=== PATIENT | female | born 1960 | race Caucasian/White ===

== ENCOUNTER → 2021-05-27 09:21 | Outpatient (BNVA) | payer OTHER, SELFPAY | PROVIDERS: PCP Pediatrics; Visit Provider Nurse Practitioner Family ==

== ENCOUNTER → 2021-08-23 08:20 | Outpatient (BNVA) | payer OTHER, SELFPAY | PROVIDERS: PCP Pediatrics; Visit Provider Nurse Practitioner Family | DX: Z13.89 Encounter for screening for other disorder (principal) ==

== ENCOUNTER → 2022-07-07 09:22 | Outpatient (BNVA) | payer OTHER, SELFPAY | PROVIDERS: PCP Pediatrics; Visit Provider Nurse Practitioner Family | DX: G43.009 Migraine without aura, not intractable, without status migrainosus (principal) ==

== ENCOUNTER → 2022-11-07 07:44 | Outpatient (BNVA) | payer OTHER, SELFPAY | PROVIDERS: PCP Pediatrics; Visit Provider Nurse Practitioner Family | DX: G43.009 Migraine without aura, not intractable, without status migrainosus (principal) ==

== ENCOUNTER 2023-03-10 10:21 | Outpatient (AMB) | payer OTHER, SELFPAY ==
--- NOTE | 2023-03-10 10:32 | A.OFFVIS_ITS ---
Intake Vital Signs 03/10/23 10:41 Height 5 ft 6 in Weight 170 lb BMI 27.4 BP 118/72 Blood Pressure Location Rt brachial Position Sitting Intake Visit Reasons: 4m follow up migraine-Confirmed Intake Note: Patient presents for 4 month follow up. Patient states Actually my migraines are much better since i saw her last. Allergies avocado Allergy (Intermediate, Verified 03/10/23 10:43) unknown doxycycline Allergy (Intermediate, Verified 03/10/23 10:43) Unknown Penicillins Allergy (Intermediate, Verified 03/10/23 10:43) Unknown pregabalin [From Lyrica] Allergy (Intermediate, Verified 03/10/23 10:43) Unknown omeprazole Allergy (Mild, Verified 03/10/23 10:43) Unknown HPI HPI Comments History of Present Illness Details 62-yr-old female presents for f/u visit. 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 She has not had a headache since she had the surgery. Overall, the migraines are less often since she stopped the Qulipta. She is still using the Ubrelvy as needed. Denies any vision changes. Had to reschedule her Oct eye exam d/t the surgery. She also notes that she did not have any BUE tingling x's 2 weeks post-op, however yesterday she did wake up with some transient LUE tingling. Has noted some increased trapezius and paracervical muscle tightness. [facility] Surgical History (Updated 03/10/23 @ 10:44 by JARRET Humphries) H/O discectomy No pertinent past surgical history Family History Father Heart disease Mother Stroke Social History Alcohol intake: current Alcohol intake frequency: a few times a month Alcohol type: wine Patient Tobacco Use Status: Former Tobacco user Review of Systems Const All systems reviewed & are unremarkable except as noted in HPI and below Physical Exam Vital Signs: Last Vital Signs BP 118/72 03/10/23 10:41 BMI result Body Mass Index 27.4 Const General: cooperative and no acute distress Orientation/consciousness: patient oriented x3 HEENT Head: Yes normocephalic Resp Effort & Inspection: normal respiratory effort and able to speak in complete se ntences Neuro General: patient oriented x3, gait normal and CN's II-XI intact bilaterally Cognition (Neuro): normal cognition Motor exam (neuro): 5/5 motor strength present throughout Psych Appearance: grossly normal Mental Status: mental status grossly normal Speech and movement: Normal speech and movement present Affect: normal affect Attitude: cooperative Thought process: Normal thought process present Thought content: Normal thought content present Insight: Good insight present (Psych) Judgement: Good judgement present (Psych) Assessment & Plan Assessment & Plan (1) Migraine without aura: Code(s): G43.009 - Migraine without aura, not intractable, without status migrainosus (2) IIH (idiopathic intracranial hypertension): Comment: LP OP 23 cmH2O, however w/o positional headache or papilledema. Code(s): G93.2 - Benign intracranial hypertension Plan For ? IIH. Previous LP results- OP 23 cmH2O, slightly elevated. Eye exam when able. Pt previously did not tolerate topiramate for migraine prevention. Will monitor clinically. ? For migraine prevention: Continue Magnesium and Riboflavin. Continue Metoprolol (for HTN). Previous migraine prevention trials: Topiramate- not tolerated, Amitriptyline- caused constipation and not very effective. Atogepant effective- denied by insurance. Migraine contraindicated tx's: Aimovig d/t long-half life w/ risk for worsening constipation. ? For acute migraine tx: Continue Ubrogepant 100mg prn, as this is effective. Zolmitriptan 5mg prn Previous acute migraine tx trials: Sumatriptan and Rizatriptan- ineffective ? f/u in 4 months or sooner prn. Coding Level of Care Code Est Pt Level 4 (48668) Diagnoses Migraine without aura G43.009 IIH (idiopathic intracranial hypertension) G93.2
[2023-03-10 10:41] VITALS: BP 118/72; BMI 27.4
== END 2023-03-10 11:13 | disposition home or self-care (01) ==
PROVIDERS: PCP Pediatrics; Visit Provider Nurse Practitioner Family
DX: G43.009 Migraine without aura, not intractable, without status migrainosus (principal); G93.2 Benign intracranial hypertension
CPT/HCPCS: 99214

== ENCOUNTER → 2023-03-10 10:21 | Outpatient (BNVA) | payer OTHER, SELFPAY | PROVIDERS: PCP Pediatrics; Visit Provider Nurse Practitioner Family | DX: G43.009 Migraine without aura, not intractable, without status migrainosus (principal) ==

== ENCOUNTER 2023-07-14 10:12 | Outpatient (AMB) | payer OTHER, SELFPAY ==
--- NOTE | 2023-07-14 10:30 | A.OFFVIS_ITS ---
Intake Vital Signs 07/14/23 10:35 Height 5 ft 6 in Weight 174 lb BMI 28.1 BP 118/72 Blood Pressure Location Rt brachial Position Sitting Pulse 44 L Pulse Source Pulse Oximeter Pulse Oximetry (%) 98 Oxygen Delivery Method Room Air Intake Visit Reasons: 4 mnts f/u for Migraines-Conf Intake Note: Patient presents for 4 month follow up migraines. I've been having more headaches Allergies avocado Allergy (Intermediate, Verified 07/14/23 10:36) unknown doxycycline Allergy (Intermediate, Verified 07/14/23 10:36) Unknown Penicillins Allergy (Intermediate, Verified 07/14/23 10:36) Unknown pregabalin [From Lyrica] Allergy (Intermediate, Verified 07/14/23 10:36) Unknown omeprazole Allergy (Mild, Verified 07/14/23 10:36) Unknown Medication List - Last Reconciled 07/14/23 by KIERAN Perales atorvastatin 40 mg PO DAILY baclofen 10 mg PO TID PRN cetirizine 10 mg PO DAILY cholecalciferol (vitamin D3) 25 mcg PO DAILY docusate sodium (Colace Clear) 50 mg PO BID 30 days famotidine 40 mg PO BID hydrochlorothiazide 25 mg PO DAILY levothyroxine 25 mcg PO DAILY losartan 25 mg PO DAILY magnesium oxide 400 mg PO DAILY 30 days metoprolol succinate ER 25 mg PO DAILY paroxetine HCl 30 mg PO DAILY riboflavin (vitamin B2) (Vitamin B-2) 200 mg (2 x 100 mg) PO BID 30 days ubrogepant (Ubrelvy) 100 mg PO ONCE PRN 30 days vibegron (Gemtesa) 75 mg PO DAILY HPI HPI Comments History of Present Illness Details 62-yr-old female presents for f/u visit. Pt denies any significant interval medical changes. Pt's heart rate today is 44-48 bpm. Pt denies SOB, chest pain, lightheadedness. She has had recent BP med changes by PCP. Her HR often runs in the 50s. She has been having more migraine headaches. She thinks this is r/t having had to stop Qulipta- which was helpful but did cause constipation. She also notes some increased life stress- her [id number] has had some health issues and her dog has passed. In the last month, she is having 4-5 migraine days per week. No vision changes- had recent eye exam which did not show any papilledema/optic neuritis. She had her annual brain MRI f/u at the [facility]- stable white matter changes. PFSH Surgical History H/O discectomy No pertinent past surgical history Family History Father Heart disease Mother Stroke Social History Alcohol intake: current Alcohol intake frequency: a few times a month Alcohol type: wine Patient Tobacco Use Status: Former Tobacco user Physical Exam Vital Signs: Last Vital Signs Pulse 44 L 07/14/23 10:35 BP 118/72 07/14/23 10:35 Pulse Ox 98 07/14/23 10:35 Oxygen Delivery Method Room Air 07/14/23 10:35 BMI result Body Mass Index 28.1 Const General: cooperative and no acute distress Orientation/consciousness: patient oriented x3 Resp Effort & Inspection: normal respiratory effort and able to speak in complete sentences Cardio Rate: bradycardic Rhythm: regular rhythm Heart sounds: S1 normal heart sound present and S2 normal heart sound present Neuro General: patient oriented x3 Cranial nerves: Yes CN's II-XII intact bilaterally Cognition (Neuro): normal cognition Psych Appearance: grossly normal Mental Status: mental status grossly normal Speech and movement: Normal speech and movement present Affect: normal affect Attitude: cooperative Assessment & Plan Assessment & Plan (1) Migraine without aura: Code(s): G43.009 - Migraine without aura, not intractable, without status migrainosus (2) IIH (idiopathic intracranial hypertension): Comment: LP OP 23 cmH2O, however w/o positional headache or papilledema. Code(s): G93.2 - Benign intracranial hypertension (3) Bradycardia: Code(s): R00.1 - Bradycardia, unspecified Plan Pt advsied to f/u w/ PCP regarding bradycardia- ? effect of Metoprolol. For ? IIH. Previous LP results- OP 23 cmH2O, slightly elevated. Eye exam- no evidence for papilledema. Pt previously did not tolerate topiramate for migraine prevention. Will monitor clinically. ? For migraine prevention: Start Emgality 240mg sc x's 1 then 120mg sc q month. Continue Magnesium and Riboflavin. Continue Metoprolol (for HTN). Previous migraine prevention trials: Topiramate- not tolerated, Amitriptyline- caused constipation and not very effective. Atogepant effective but did cause constipation- previously denied by insurance. Migraine contraindicated tx's: Aimovig d/t long-half life w/ risk for worsening constipation. ? For acute migraine tx: Continue Ubrogepant 100mg prn, as this is effective. Zolmitriptan 5mg prn Previous acute migraine tx trials: Sumatriptan and Rizatriptan- ineffective ? f/u in 4 months or sooner prn. Medications: New galcanezumab-gnlm (Emgality Pen) Loading dose 240 mg (2 mL) subcut ONCE 30 days 2 mL 0RF Coding Level of Care Code Est Pt Level 4 (21071) Diagnoses Migraine without aura G43.009 IIH (idiopathic intracranial hypertension) G93.2 Bradycardia R00.1
[2023-07-14 10:35] VITALS: BP 118/72; PULSE 44; O2SAT 98; BMI 28.1
== END 2023-07-14 11:24 | disposition home or self-care (01) ==
LOC: HO.HSMS 10:12
PROVIDERS: PCP Pediatrics; Visit Provider Nurse Practitioner Family
DX: G43.009 Migraine without aura, not intractable, without status migrainosus (principal); G93.2 Benign intracranial hypertension; R00.1 Bradycardia, unspecified
CPT/HCPCS: 99214

== ENCOUNTER → 2023-07-14 10:12 | Outpatient (BNVA) | payer OTHER, SELFPAY | PROVIDERS: PCP Pediatrics; Visit Provider Nurse Practitioner Family ==

== ENCOUNTER 2023-10-26 08:16 | Outpatient (AMB) | payer OTHER, SELFPAY ==
--- NOTE | 2023-10-26 08:25 | A.OFFVIS_ITS ---
Vital Signs 10/26/23 08:26 Height 5 ft 6 in Weight 170 lb BMI 27.4 BP 116/76 Blood Pressure Location Rt brachial Position Sitting Intake Visit Reasons: 4 mo f/u-LVM Intake Note: Patient following up on migraines. patient on ubrelvy states it'[s working Allergies avocado Allergy (Intermediate, Verified 10/26/23 08:30) unknown doxycycline Allergy (Intermediate, Verified 10/26/23 08:30) Unknown Penicillins Allergy (Intermediate, Verified 10/26/23 08:30) Unknown pregabalin [From Lyrica] Allergy (Intermediate, Verified 10/26/23 08:30) Unknown omeprazole Allergy (Mild, Verified 10/26/23 08:30) Unknown Medication List - Last Reconciled 10/26/23 by KIERAN Perales apixaban (Eliquis) 5 mg PO BID atorvastatin 40 mg PO DAILY baclofen 10 mg PO TID PRN carisoprodol mg PO cetirizine 10 mg PO DAILY cholecalciferol (vitamin D3) 25 mcg PO DAILY docusate sodium (Colace Clear) 50 mg PO BID 30 days dronedarone (Multaq) 400 mg PO BID famotidine 40 mg PO BID galcanezumab-gnlm (Emgality Pen) 240 mg (2 mL) subcut ONCE 30 days hydrochlorothiazide 25 mg PO DAILY levothyroxine 25 mcg PO DAILY losartan 25 mg PO DAILY magnesium oxide 400 mg PO DAILY 30 days metoprolol succinate ER 25 mg PO DAILY paroxetine HCl 30 mg PO DAILY riboflavin (vitamin B2) (Vitamin B-2) 200 mg (2 x 100 mg) PO BID 30 days ubrogepant (Ubrelvy) 100 mg PO ONCE PRN 30 days vibegron (Gemtesa) 75 mg PO DAILY HPI Comments Details: 63-yr-old female presents for f/u visit. Pt reports in July, she was dx'd w/ symptomatic a-fib- fluttering, SOB, and if prolonged for 2-3 hrs has a terrible headache afterwards. She has been managed medically- increased metoprolol and started on Multaq and Eliquis, and has been referred to [facility] cardiology. She is scheduled for holter monitor. Pt reports the Ubrelvy is effective. However, she has periods where the migraines are more frequent or less frequent. Lately, she is having 1-2 migraine days per week, where as other times it can be 3-4 migraine days per week. Her insurance will not cover both preventive and acute CGRP antagonsist at the same time, so pt has not started Emgality. PFSH Surgical History H/O discectomy No pertinent past surgical history Family History Father Heart disease Mother Stroke Social History Alcohol intake: current Alcohol intake frequency: a few times a month Alcohol type: wine Patient Tobacco Use Status: Former Tobacco user Physical Exam Vital Signs: Last Vital Signs BP 116/76 10/26/23 08:26 BMI result Body Mass Index 27.4 Const General: cooperative and no acute distress Orientation/consciousness: patient oriented x3 Resp Effort & Inspection: normal respiratory effort and able to speak in complete sentences Neuro General: patient oriented x3 Cranial nerves: Yes CN's II-XII intact bilaterally Cognition (Neuro): normal cognition Psych Appearance: grossly normal Mental Status: mental status grossly normal Speech and movement: Normal speech and movement present Affect: normal affect Attitude: cooperative Assessment & Plan Assessment & Plan (1) Migraine without aura: Code(s): G43.009 - Migraine without aura, not intractable, without status migrainosus Category: Medical (2) IIH (idiopathic intracranial hypertension): Comment: LP OP 23 cmH2O, however w/o positional headache or papilledema. Code(s): G93.2 - Benign intracranial hypertension Category: Medical (3) Atrial fibrillation: Code(s): I48.91 - Unspecified atrial fibrillation Category: Medical Plan For ? IIH. Previous LP results- OP 23 cmH2O, slightly elevated. Eye exam- no evidence for papilledema. Pt previously did not tolerate topiramate for migraine prevention. Will monitor clinically. ? For migraine prevention: Hold Emgality 240mg- her insurance has not approved. Continue Magnesium and Riboflavin. Continue Metoprolol (for HTN and A-fib). Will consider adjuncting further after pt has completed a-fib work-up and tx plan has been established. In the meantime, could consider trying neuromodulation device, such as Cefaly. Information shared w/ pt. Previous migraine prevention trials: Topiramate- not tolerated, Amitriptyline- caused constipation and not very effective. Atogepant effective but did cause constipation- previously denied by insurance. Migraine contraindicated tx's: Aimovig d/t long-half life w/ risk for worsening constipation. ? For acute migraine tx: Continue Ubrogepant 100mg prn, as this is effective. Previous acute migraine tx trials: Sumatriptan and Rizatriptan- ineffective. Zolmitriptan 5mg prn- some effect. Tx contraindications: all triptans d/t new a-fib dx. NSAIDs d/t eleuis use. ? f/u in 6 months or sooner prn. Medications: Discontinued galcanezumab-gnlm (Emgality Pen) Loading dose Discontinued Reason: Doctor's Order 240 mg (2 mL) subcut ONCE 30 days 2 mL 0RF Coding Level of Care Code Est Pt Level 4 (39448) Diagnoses Migraine without aura G43.009 IIH (idiopathic intracranial hypertension) G93.2 Atrial fibrillation I48.91
[2023-10-26 08:26] VITALS: BP 116/76; BMI 27.4
== END 2023-10-26 09:28 | disposition home or self-care (01) ==
PROVIDERS: PCP Pediatrics; Visit Provider Nurse Practitioner Family
DX: G43.009 Migraine without aura, not intractable, without status migrainosus (principal); G93.2 Benign intracranial hypertension; I48.91 Unspecified atrial fibrillation
CPT/HCPCS: 99214

== ENCOUNTER → 2023-10-26 08:16 | Outpatient (BNVA) | payer OTHER, SELFPAY | PROVIDERS: PCP Pediatrics; Visit Provider Nurse Practitioner Family ==

== ENCOUNTER 2024-05-23 11:16 | Outpatient (AMB) | payer OTHER, SELFPAY ==
[2024-05-23 11:46] VITALS: BP 120/72; PULSE 62; O2SAT 96; BMI 27.4
--- NOTE | 2024-05-23 11:46 | MHC.OFFVIS ---
Vital Signs 05/23/24 11:46 Height 5 ft 6 in Weight 169 lb 8 oz BMI 27.4 BP 120/72 Blood Pressure Location Rt brachial Position Sitting Pulse 62 Pulse Source Pulse Oximeter Pulse Oximetry (%) 96 Oxygen Delivery Method Room Air Intake Visit Reasons: Follow up Intake Note: Follow up Allergies avocado Allergy (Intermediate, Verified 05/23/24 11:51) unknown doxycycline Allergy (Intermediate, Verified 05/23/24 11:51) Unknown Penicillins Allergy (Intermediate, Verified 05/23/24 11:51) Unknown pregabalin [From Lyrica] Allergy (Intermediate, Verified 05/23/24 11:51) Unknown amlodipine Allergy (Mild, Verified 05/23/24 11:51) Swelling omeprazole Allergy (Mild, Verified 05/23/24 11:51) Unknown tizanidine Allergy (Mild, Verified 05/23/24 11:51) Unknown dronedarone Allergy (Unknown, Verified 05/23/24 11:51) Unknown NSAIDS (Non-Steroidal Anti-Inflamma Allergy (Unknown, Verified 05/23/24 11:51) Unknown Medication List - Last Reconciled 05/23/24 by KIERAN Perales apixaban (Eliquis) 5 mg PO BID atorvastatin 40 mg PO DAILY baclofen 10 mg PO TID PRN carisoprodol mg PO cetirizine 10 mg PO DAILY cholecalciferol (vitamin D3) 25 mcg PO DAILY docusate sodium (Colace Clear) 50 mg PO BID 30 days dronedarone (Multaq) 400 mg PO BID famotidine 40 mg PO BID hydrochlorothiazide 25 mg PO DAILY levothyroxine 25 mcg PO DAILY losartan 25 mg PO DAILY magnesium oxide 400 mg PO DAILY 30 days metoprolol succinate ER 25 mg PO DAILY paroxetine HCl 30 mg PO DAILY riboflavin (vitamin B2) (Vitamin B-2) 200 mg (2 x 100 mg) PO BID 30 days ubrogepant (Ubrelvy) 100 mg PO ONCE PRN 30 days vibegron (Gemtesa) 75 mg PO DAILY HPI Comments Details: 63-yr-old female presents for f/u visit of Pt currently has cold/URI s/s.- cough, hoarseness . She has had cardiology f/u- states work-up does not show evidence of a-fib and has been weaned off the Eliquis. The Multaq was stopped d/t elevated LFTs, which have normalized. She continues on her anti-HTN Tx for BP management. Today, she is normotensive. She just had f/u brain MRI- ordered through the [facility]- she reviewed the report herself, and results were stable. She had a recent fall, and has been having ongoing L> R knee pain despite trying PT. So, she is using a cane for now. She had MRI left knee- states has f/u w/ [facility] physiatry to review. Pt reports the Ubrelvy is effective. However, she has periods where the migraines are more frequent or less frequent. Recently she is having less migraines, about 3-4 migraine days per week. [facility] Surgical History (Updated 05/23/24 @ 11:53 by JARRET Hu) H/O cardiac radiofrequency ablation H/O discectomy No pertinent past surgical history Family History Father Heart disease Mother Stroke Social History Alcohol intake: current Alcohol intake frequency: a few times a month Alcohol type: wine Patient Tobacco Use Status: Former Tobacco user Physical Exam Vital Signs: Last Vital Signs Pulse 62 05/23/24 11:46 BP 120/72 05/23/24 11:46 Pulse Ox 96 05/23/24 11:46 Oxygen Delivery Method Room Air 05/23/24 11:46 BMI result Body Mass Index 27.4 Const General: cooperative and no acute distress Orientation/consciousness: patient oriented x3 Resp Effort & Inspection: normal respiratory effort and able to speak in complete sentences Neuro Other: Steady gait with cane. General: patient oriented x3 Cranial nerves: Yes CN's II-XII intact bilaterally Cognition (Neuro): normal cognition Psych Appearance: grossly normal Mental Status: mental status grossly normal Speech and movement: Normal speech and movement present Affect: normal affect Attitude: cooperative Assessment & Plan Assessment & Plan (1) Migraine without aura: Code(s): G43.009 - Migraine without aura, not intractable, without status migrainosus Category: Medical (2) IIH (idiopathic intracranial hypertension): Comment: LP OP 23 cmH2O, however w/o positional headache or papilledema. Code(s): G93.2 - Benign intracranial hypertension Category: Medical (3) White matter disease, unspecified: Comment: Brain MRI ([facility])- mild cerebral volume loss and WM changes. Code(s): R90.82 - White matter disease, unspecified Category: Medical Plan For ? IIH: Will request recent brain MRI results from the [facility]. Previous LP results- OP 23 cmH2O, slightly elevated. Eye exam- no evidence for papilledema. Pt previously did not tolerate topiramate for migraine prevention. Will monitor clinically. ? For migraine prevention: Continue Magnesium and Riboflavin. Continue Metoprolol (for HTN). Will consider adjuncting further after pt has completed a-fib work-up and tx plan has been established. In the meantime, could consider trying neuromodulation device, such as Cefaly. Information shared w/ pt. Previous migraine prevention trials: Topiramate- not tolerated, Amitriptyline- caused constipation and not very effective. Atogepant effective but did cause constipation- previously denied by insurance. Migraine contraindicated tx's: Aimovig d/t long-half life w/ risk for worsening constipation. ? For acute migraine tx: Continue Ubrogepant 100mg prn, as this is effective. Previous acute migraine tx trials: Sumatriptan and Rizatriptan- ineffective. Zolmitriptan 5mg prn- some effect. Tx contraindications: all triptans d/t h/o a-fib dx. ? f/u in 6 months or sooner prn. Medications: Refilled ubrogepant (Ubrelvy) 1/2 - 1 tab at onset of migraine, may repeat in 2 hrs (max 200mg/day) 100 mg PO ONCE 30 days PRN 16 tabs 6RF migraine headache G43.009 - Migraine without aura, not intractable, without status migrainosus Coding Level of Care Code Est Pt Level 4 (15005) Diagnoses Migraine without aura G43.009 IIH (idiopathic intracranial hypertension) G93.2 White matter disease, unspecified R90.82
== END 2024-05-23 12:22 | disposition home or self-care (01) ==
PROVIDERS: PCP Pediatrics; Visit Provider Nurse Practitioner Family
DX: G43.009 Migraine without aura, not intractable, without status migrainosus (principal); G93.2 Benign intracranial hypertension; R90.82 White matter disease, unspecified
CPT/HCPCS: 99214

== ENCOUNTER → 2024-05-23 11:16 | Outpatient (BNVA) | payer OTHER, SELFPAY | PROVIDERS: PCP Pediatrics; Visit Provider Nurse Practitioner Family ==

== ENCOUNTER 2024-12-06 09:06 | Outpatient (AMB) | payer OTHER, SELFPAY ==
[2024-12-06 09:19] VITALS: BP 112/62; PULSE 59; O2SAT 98; BMI 26.2
--- NOTE | 2024-12-06 09:19 | MHC.OFFVIS ---
Vital Signs 12/06/24 09:19 Height 5 ft 6 in Weight 162 lb 8 oz BMI 26.2 BP 112/62 Blood Pressure Location Lt brachial Position Sitting Pulse 59 Pulse Source Pulse Oximeter Pulse Oximetry (%) 98 Oxygen Delivery Method Room Air Intake Visit Reasons: Follow Up 6mo Intake Note: Patient presents follow up Migraine. Allergies avocado Allergy (Intermediate, Verified 12/06/24 09:21) unknown doxycycline Allergy (Intermediate, Verified 12/06/24 09:21) Unknown Penicillins Allergy (Intermediate, Verified 12/06/24 09:21) Unknown pregabalin (From Lyrica) Allergy (Intermediate, Verified 12/06/24 09:21) Unknown amlodipine Allergy (Mild, Verified 12/06/24 09:21) Swelling omeprazole Allergy (Mild, Verified 12/06/24 09:21) Unknown tizanidine Allergy (Mild, Verified 12/06/24 09:21) Unknown dronedarone Allergy (Unknown, Verified 12/06/24 09:21) Unknown NSAIDS (Non-Steroidal Anti-Inflamma Allergy (Unknown, Verified 12/06/24 09:21) Unknown Medication List - Last Reconciled 12/06/24 by KIERAN Perales atorvastatin 40 mg PO DAILY baclofen 10 mg PO TID PRN carisoprodol mg PO cetirizine 10 mg PO DAILY cholecalciferol (vitamin D3) 25 mcg PO DAILY famotidine 40 mg PO BID hydrochlorothiazide 25 mg PO DAILY levothyroxine 25 mcg PO DAILY linaclotide (Linzess) 75 mcg PO Q OTHER DAY losartan 25 mg PO DAILY magnesium oxide 400 mg PO DAILY 30 days paroxetine HCl 30 mg PO DAILY riboflavin (vitamin B2) (Vitamin B-2) 200 mg (2 x 100 mg) PO BID 30 days ubrogepant (Ubrelvy) 100 mg PO ONCE PRN 30 days vibegron (Gemtesa) 75 mg PO DAILY HPI Comments Details: 63-yr-old female presents for f/u visit of Pt denies any significant interval changes. Denies nay interval s/s of a-fib s/p the cardiac ablation. She is compliant w/ Losartan for BP management. Today, she is normotensive w/ low norm HR, today HR is 59. She has f/u w/ the [facility] in [place]. Brain MRI showed stable white matter changes, non-specific. She states that she is due to have EMG/NCS d/t increased hand/feet tingling. She also notes 5 recent falls and some near falls where she catches herself. The falls have been a mix of tripping over a basket, stepping on some acorns, but other times tripping or just turning and losing her balance. She feels off-balance, more so when her eyes are closed. She can feel the ground when she is walking. She was having less headcahes, but in the last few months is again having 2-3 migraine attacks per week. Pt reports the Ubrelvy is effective, but has not been able to refill this since the last visit. PFSH Surgical History H/O cardiac radiofrequency ablation H/O discectomy No pertinent past surgical history Family History Father Heart disease Mother Stroke Social History Alcohol intake: current Alcohol intake frequency: a few times a month Alcohol type: wine Patient Tobacco Use Status: Former Tobacco user Physical Exam Vital Signs: Last Vital Signs Pulse 59 12/06/24 09:19 BP 112/62 12/06/24 09:19 Pulse Ox 98 12/06/24 09:19 Oxygen Delivery Method Room Air 12/06/24 09:19 BMI result Body Mass Index 26.2 Const General: cooperative and no acute distress Orientation/consciousness: patient oriented x3 Resp Effort & Inspection: normal respiratory effort and able to speak in complete sentences Neuro Other: Steady gait with cane. General: patient oriented x3 Cranial nerves: Yes CN's II-XII intact bilaterally Cognition (Neuro): normal cognition Psych Appearance: grossly normal Mental Status: mental status grossly normal Speech and movement: Normal speech and movement present Affect: normal affect Attitude: cooperative Assessment & Plan Assessment & Plan (1) Migraine without aura: Code(s): G43.009 - Migraine without aura, not intractable, without status migrainosus Category: Medical Qualifiers: Intractability: not intractable Status migrainosus presence: without status migrainosus Qualified Code(s): G43.009 - Migraine without aura, not intractable, without status migrainosus (2) IIH (idiopathic intracranial hypertension): Comment: LP OP 23 cmH2O, however w/o positional headache or papilledema. Code(s): G93.2 - Benign intracranial hypertension Category: Medical (3) White matter disease, unspecified: Comment: Brain MRI ([facility])- mild cerebral volume loss and WM changes. Code(s): R90.82 - White matter disease, unspecified Category: Medical Plan For ? IIH: Reviewed brain MRI results from the [facility]. Previous LP results- OP 23 cmH2O, slightly elevated. Eye exam- no evidence for papilledema. Pt previously did not tolerate topiramate for migraine prevention. Will monitor clinically. For balance issues: Try adding foot/ankle exercises- handout given to pt. Consider Adalid-Chi For white matter cahnges and paresthesias: F/u w/ [facility] as scheduled. EMG/NCS as planeed. ? For migraine prevention: Continue Magnesium and Riboflavin. Pt has stopped metoprolol per cardiology- d/t bradycardia. Start Memantine ER 7mg daily x's 30 days, if well tolertaed will increase daily dose every 30 days to 14mg, then 21mg, and finally 28mg. Previous migraine prevention trials: Topiramate- not tolerated, Amitriptyline- caused constipation and not very effective. Atogepant effective but did cause constipation- previously denied by insurance. Metoprolol- bradycardia. Migraine contraindicated tx's: Aimovig d/t long-half life w/ risk for worsening constipation. ? For acute migraine tx: Continue Ubrogepant 100mg prn, as this is effective. Previous acute migraine tx trials: Sumatriptan and Rizatriptan- ineffective. Zolmitriptan 5mg prn- some effect. Tx contraindications: all triptans d/t a-fib dx. ? f/u in 6 months or sooner prn. Medications: New memantine then stop and increase to 14mg qd 7 mg PO DAILY 30 ea 0RF 30 days Refilled ubrogepant (Ubrelvy) 1/2 - 1 tab at onset of migraine, may repeat in 2 hrs (max 200mg/day) 100 mg PO ONCE PRN 16 tabs 6RF migraine headache 30 days G43.009 - Migraine without aura, not intractable, without status migrainosus Coding Level of Care Code Est Pt Level 4 (10728) Diagnoses Migraine without aura and without status migrainosus, not intractable G43.009 Intractability: not intractable Status migrainosus presence: without status migrainosus IIH (idiopathic intracranial hypertension) G93.2 White matter disease, unspecified R90.82
--- OUTSIDE RECORDS SUMMARY | 2024-12-06 09:25 | XMS_ITS | Patient Health Record ---
Author Organization [employer] [facility] Address [address] [place] [address] Care Team Providers Care Thread Puller Name Role Phone Hair Becerra Primary Care Provider Tati Muñoz Unavailable [phone] Allergies Allergen (clinical drug ingredient) Drug/Non Drug Allergy documented on EMR Reaction Allergy Type Onset Date Status SOME NSAIDS (uncoded) Unknown Allergy Active PENICILLIN Skin Rash Drug Allergy Active pregabalin LYRICA Face Swelling Drug Allergy Ac tive Reason For Referral No Information Medications Medication SIG (Take, Route, Frequency, Duration) Notes Start Date End Date Status Paxil 30 MG 1 Orally every morning [facility] 12/29/2011 Active Amitiza 24 MCG 1 capsule with food Orally Twice a day Active ZyrTEC Allergy 10 MG 1 tablet Orally Onc e a day Active Soma 250MG 1 ORAL as needed; Duration: 10 [facility] 01/21/2014 Active Vitamin D3 1000 IU 1 ORAL daily; Durati on: -3 [facility] 01/21/2014 Active Levothyroxine Sodium 25 MCG 1 Orally Once a day [facility] Active Social History Tobacco Use: Social History Observation Description Date Details (start date - stop date) Former Smoker NA - NA Tobacco Use/Smoking Question Answer Notes Are you a former smoker How long has it been since you last smoked? > 10 years Alcohol Screen (Audit-C) Question Answer Notes Did you have a drink contain ing alcohol in the past year? Yes How often did you have a dri nk containing alcohol in the past year? 2 to 4 times a month (2 points) How many drinks did you have on a typical day when you were drinking in the past year? 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) Active confirmed Diag Problem Hypothyroidism (33896754) Unspecified hypothyroidism (244.9) Active confirmed Major Problem Menopausal symptom (62904131) Symptomatic menopausal or female climacteric states (627.2) Active confirmed Diag Problem Postmenopausal atrophic vaginitis (50198985) Postmenopausal atrophic vaginitis (627.3) Active confirmed Diag Problem Osteoarthritis (878386898) Osteoarthrosis, unspecified whether generalized or localized, unspecified site (715.90) Active confirmed Major Problem Muscle pain (56140170) Unspecified myalgia and myositis (729.1) Active confirmed Major Problem Gynecological examination normal (421736401347671) Routine gynecological examination (V72.31) Active confirmed Major Problem Screening for malignant neoplasm of colon (396242507) Special screening for malignant neoplasms, colon (V76.51) Active confirmed Major Plan Of Treatment Pending Test Test Name Order Date MAMMOGRAM, SCREENING 02/09/2015 THIN PREP,HPV,SARA IF HPV+ (>29YR)(SCRN) 03/17/2017 Insurance Providers Payer Name Payer Address Payer Phone Subscriber Number Group Number Insured Name Patient Relationship to Insured Coverage Start Date Coverage End Date [facility] [address] [place] [address] [phone] [id number] VANESSA BAH Self - patient is the insured Medical (General) History Medical History History ICD Code Postmenopausal atrophic vaginitis N95.2 Menopausal and female climacteric states N95.1 Carcinoma in situ of endocervix D06.0 Unspecified osteoarthritis, unspecified site M19.90 Myalgia M79.1 Hypothyroidism, unspecified E03.9 Personal history of cervical dysplasia Z 87.410 Moderate cervical dysplasia N87.1 Surgical History Surgery Date(Month/Year) Colonoscopy Laser Surgery Cervix Right Inguinal Hernia [facility] Hospitalization History Reason Date(Month/Year) See Surgical Hx
--- OUTSIDE RECORDS SUMMARY | 2024-12-06 09:25 | XMS_ITS | Encounter Summary ---
Author Organization [facility] Address [address] [place] [address] Phone Care Team Providers Care Flap Maker Name Role Phone Amarjit Dewitt MD Unavailable [email or web address] Hair Becerra MD Unavailable [phone] Dorita Mac NP Unavailable [phone] Hair Becerra MD Primary Care Provider [phone] Hair Becerra MD Unavailable [phone] Hair Becerra MD Primary Care Provider [phone] Encounter Details Date Type Department Care Team (Late st Contact Info) Description 04/05/2018 Ancillary Orders [facility],Outside Imaging [address] [place] [address] System, Provider Not In, [place] [address] Social History Tobacco Use Types Packs/Day Years Used Date Smoking Tobacco: Former Cigarettes 1 20 1 976 - 1995 Smokeless Tobacco: Never Alcohol Use Standard Drinks/Week Comments Yes 5 (1 standard drink = 0.6 oz pur e alcohol) Comments No Sex and Gender Information Value Date Recorded Sex Assigned at Female 10/26/2020 10:20 AM EDT Legal Sex Female 9:46 PM EDT Gender Identity Female 10/26/2020 10:20 AM EDT Sexual Orientation Straight 10/26/2020 10 :20 AM EDT 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 Not on file Not on file documented as of this encounter Plan of Treatment Upcoming Encounters Date Type Department Care Team (Late st Contact Info) Description 12/15/2024 8:00 AM EDT Office Visit [facility] [address] [place] [address] Carmelita Woodard MD [address], [address] [place] [address] 12/15/2024 11:30 AM EDT Appointment [facility], X-Ray - [address] [address] Trae Rdz MD [address] [place] [address] 01/05/2025 8:30 AM EDT Office Visit [facility] [address] [place] [address] Alin Alejandro MD [address] [facility] [address] [place] [address] Vidhi Lehman, PT 4 [place] [address] 01/12/2025 8:30 AM EDT Office Visit [facility] [address] [place] [address] Alin Alejandro MD [address] [facility] [address] [place] [address] Vidhi Lehman, PT 4 [place] [address] 01/19/2025 8:30 AM EDT Office Visit [address] [address] Alin Alejandro MD [address] [address] Vidhi Lehman, PT 4 [place] [address] 01/26/2025 8:30 AM EDT Office Visit [address] [address] Hair Becerra MD [address] [place] [address], [address] [place] [address] 01/26/2025 10:00 AM EDT Office Visit [address] [address] Alin Alejandro MD [facility] [address] [address] Vidhi Lehman, PT 4 [place] [address] 02/02/2025 8:30 AM EDT Office Visit [address] [address] Alin Alejandro MD [facility] [address] [address] Vidhi Lehman, PT 4 [place] [address] 02/09/2025 8:30 AM EDT Office Visit [address] [address] Alin Alejandro MD [address] [address] Vidhi Lehman, PT 4 [place] [address] 02/16/2025 8:30 AM EDT Office Visit [address] [address] Alin Alejandro MD [address] [address] Vidhi Lehman, PT 4 [place] [address] 03/02/2025 8:30 AM EDT Office Visit [address] [address] Vidhi Lehman, PT 4 [place] [address] documented as of this encounter Results * Mammogram Outside (No Interpretation) (04/12/2012 12:00 AM EST) Narrative SYSTEMGENERATED, DOCUMENTATION - 04/05/2018 1:45 PM EST This study is for PACS storage only and not for interpretation. us Provider Not In System PhD IMG OUTSIDE IMAGING W /OUT INTERPRETATION Final Result documented in this encounter Visit Diagnoses Not on filedocumented in this encounter Additional Health Concerns Infection Onset Date Last Indicated Resolved Time CoV-Risk 03/12/2021 03/13/2021 03/14/2021 4:37 PM EST COVID-19 03/13/2021 03/13/2021 04/03/2021 1:21 AM EST CoV-Risk Comment:Per Ambulatory Triage Form 10/01/2021 10/01/202110/12 1:22 AM EDT CoV-Risk 11/06/2022 11/06/2022 11/17/2022 1:21 AM EDT documented as of this encounter Care Teams Flap Maker Relationship Specialty Start Date End Date Hair Becerra MD [address] [place] [address] [email or web address] PCP - General Internal Medicine 03/18/17 10/01/24 Hair Becerra MD [address] [place] [address] [email or web address] PCP - General Internal Medicine 10/02/24 Amarjit Dewitt MD [email or web address] Historical LMR Provider 02/21/17 Hair Becerra MD [address] [place] [address], [address] [place] [address] [email or web address] Historical LMR Provider 02/21/17 Dorita Mac NP [address] [place] [address] Historical LMR Provider 02/21/17 2 Hair Becerra MD [address] [place] [address], [address] [place] [address] [email or web address] Insurance Assigned Provider 02/11/20 09/07/21 documented as of this encounter Additional Source Comments The information contained in this document represents components of the legal health record. It is not the complete legal health record.[facility]
--- OUTSIDE RECORDS SUMMARY | 2024-12-06 09:26 | XMS_ITS | Clinical Summary ---
Author Organization [facility] Address [address] [place] [phone] Phone Care Team Providers Care Jewelry Making Instructor Name Role Phone Hair Becerra MD Primary Care Provider [phone] Allergies Active Allergy Reactions Criticality Noted Date Comments Amlodipine 05/31/2024 Doxycycline Photosensitivity Medium 04/01/2017 Dronedarone 01/25/2024 Nsaids (Non-Steroidal Anti-Inflammatory Drug) Medium 04/15/2017 Liver problems Omeprazole 06/30/2022 Penicillins Rash Low 04/01/2017 Pregabalin Swelling Medium 03/19/2017 Tizanidine Dizziness,GI intolerance High 09/17/2022 Medications atorvastatin (LIPITOR) 20 mg tablet Take 2 tablets (40 mg total) by mouth 1 (one) time each day. 2 Active baclofen (LIORESAL) 10 mg tablet Take 1/2 tab po TID prn. 2 Active cetirizine (ZyrTEC) 10 mg capsule Take 1 capsule (10 mg total) by mouth 1 (one) time each day. Active cholecalciferol (VITAMIN D-3) 25 mcg (1,000 unit) capsule 1 capsule (1,000 Units total). Active famotidine (PEPCID) 40 mg tablet Take 1 tablet (40 mg total) by mouth. 2 Active hydroCHLOROthia zide (HYDRODIURIL) 25 mg tablet Take 1 tablet (25 mg total) by mouth 1 (one) time each day. 2 Active levothyroxine (SYNTHROID, LEVOTHROID) 25 mcg tablet TAKE 1 TABLET DAILY FOR 6 DAYS PER WEEK, AND TAKE 1 & 1/2 TABLETS DAILY ONE DAY PER WEEK 2 Active magnesium oxide (MAG-OX) 400 mg (241.3 elemental magnesium) tablet Take 1 tablet (400 mg total) by mouth. 2 Active riboflavin (VITAMIN B2) 100 mg tablet Take 2 tablets (200 mg total) by mouth 2 (two) times a day. 2 Active ubrogepant (Ubrelvy) 100 mg tablet PLEASE SEE ATTACHED FOR DETAILED DIRECTIONS 2 Active vibegron (Gemtesa) 75 mg tablet tablet Take by mouth. A ctive carisoprodoL (SOMA) 250 mg tablet Take 1 tablet (250 mg total) by mouth. Active magnesium oxide (MAG-OX) 400 mg magnesium tablet Take 1 tablet (400 mg total) by mouth 1 (one) time each day. Active PARoxetine (PAXIL) 30 mg tablet Take 1 tablet (30 mg total) by mouth 1 (one) time each day. Active losartan (COZAAR) 100 mg tablet Take 1 tablet (100 mg total) by mouth 1 (one) time each day. 5 Active cyanocobalamin 2,000 mcg tablet Take 1 tablet (2,000 mcg total) by mouth 1 (one) time each day. 30 tablet 11 5 05/31/19 26 Active Linzess 72 mcg capsule Take 1 capsule (72 mcg total) by mouth 1 (one) time each day. 5 Active Active Problems Problem Noted Date Diagnosed Date Osteoarthritis of spine with radiculopathy, cerv ical region 07/08/2023 Intractable migraine without aura and with status migrainosus 07/08/2023 Neuropathy 07/08/2023 Essential hypertension 07/08/2023 Acquired hypothyroidism 07/08/2023 Fibromyalgia 07/08/2023 History of Lyme disease 07/08/2023 Menopausal symptoms 07/08/2023 Normal gynecologic examination 07/08/2023 Osteoarthritis 07/08/2023 Other insomnia 07/08/2023 Primary osteoarthritis of both knees 07/08/2023 Pure hypercholesterolemia 07/08/2023 Sleep apnea 07/08/2023 Spinal stenosis of lumbosacral region 07/08/2023 Varicose veins of both lower extremities with pa in 07/08/2023 Encounters Date Type Department Care Team Description 09/20/2024 8:30 AM EDT Office Visit [address] [place] [address] Leann Newell, PA Numbness and tingling in both hands (Primary Dx) from Last 3 Months Immunizations Name Administration Dates Next Due Pfizer SARS-CoV-2 COVID-19, mRNA, LNP-S, preservative free 08/10/2020,07/20/2020 Surgical History Surgery Date Site/Laterality Comments HERNIA REPAIR 1988 PROCEDURE:HERNIA REPAIR Medical History Medical History Date Comments Hypertension DX:Hypertension Pure hypercholesterolemia DX:Pur e hypercholesterolemia Hypothyroidism DX:Hypothyroidis m Fibromyalgia, primary DX:Fibromy algia, primary Sleep apnea DX:Sleep apnea Pelvic floor dysfunction DX:Pelv ic floor dysfunction A-fib ([facility] V24, [facility] V28) Family History Medical History Relation Name Comments Atrial fibrillation Brother Heart attack Father Heart disease Father Hypertension Mother Stroke Mother No Known Problems Sister Multiple sclerosis Neg Hx Relation Name Status Comments Brother Alive Father Mother Sister Alive Social History Tobacco Use Types Packs/Day Years Used Date Smoking Tobacco: Former Cigarettes Q uit: 11/15/1992 Smokeless Tobacco: Never Tobacco Cessation:Counseling Given: Not Answered Alcohol Use Standard Drinks/Week Comments Yes 0 (1 standard drink = 0.6 oz pur e alcohol) Comments Unknown Sex and Gender Information Value Date Recorded Sex Assigned at Female 05/12/2024 4:41 PM EST Legal Sex Female 9:01 PM EST Gender Identity Female 05/12/2024 4:41 PM EST Sexual Orientation Straight 05/12/2024 4: 41 PM EST Obstetrics History Last Filed Vital Signs Vital Sign Reading Time Taken Comments Blood Pressure 106/64 09/20/2024 8:26 AM EDT Pulse 53 09/20/2024 8:26 AM EDT Temperature 36.8 C (98.2 F) 05/31/2024 10:11 AM EST Respiratory Rate - - Oxygen Saturation 98% 09/20/2024 8:26 AM EDT Inhaled Oxygen Concentration - - Weight 73.5 kg (162 lb) 09/20/2024 8:26 AM EDT Height 167.6 cm (5' 6 ) 09/20/2024 8:26 AM EDT Body Mass Index 26.15 09/20/2024 8:26 AM EDT Plan of Treatment Upcoming Encounters Date Type Department Care Team (Late st Contact Info) Description 12/13/2024 2:45 PM EDT Appointment [facility] Neurodiagn[facility] [address] [place] [id number] 03/23/2025 9:00 AM EST Office Visit [facility] [address] [place] [phone] Leann Newell PA [address] [facility] [address] [place] [address] Health Maintenance Due Date Last Done Comments Cervical Cancer Screening: Pap Smear 1982 Pneumococcal Vaccine: 50+ Years (2 of 2 - PCV) 08/29/2015 08/28/2014 Colorectal Cancer Screening: Colonoscopy 04/08/2022 HIV Screening 04/08/2022 Social Influencers of Health Screening 04/08/2022 Depression Screening 05/04/2024 Influenza Vaccine (#1) 2025 , 02/04/2023, 02/24/2022, Additional history exists Hypertension/CHF/CAD Annual BMP Blood Test 07/07/2025 07/07/2024, 01/25/2024, 09/26/2023, Additional history exists Breast Cancer Screening 07/12/2025 07/13/2023 Cholesterol Screening (Lipid Panel) 01/24/2029 01/25/2024, 09/11/2022 DTaP,Tdap,and Td Vaccines (3 - Td or Tdap) 05/19/2029 05/19/2019, 05/04/2008 Hepatitis C Screening Completed 12/07/2020, 021 Zoster Vaccines Completed 06/17/2023, 04/01/2023 COVID-19 Vaccine Completed 02/08/2024, 08/2022, 01/30/2022, Additional history exists RSV Immunization Adult Patients Completed 02/15/2024 HIB Vaccines Aged Out No longer eligi ble based on patient's age to complete this topic HPV Vaccines Aged Out No longer eligi ble based on patient's age to complete this topic Hepatitis A Vaccines Aged Out No long er eligible based on patient's age to complete this topic Hepatitis B Vaccines Aged Out No long er eligible based on patient's age to complete this topic IPV Vaccines Aged Out No longer eligi ble based on patient's age to complete this topic MMR Vaccines Aged Out No longer eligi ble based on patient's age to complete this topic Meningococcal ACWY Vaccine Aged Out N o longer eligible based on patient's age to complete this topic Meningococcal B Vaccine Aged Out No l onger eligible based on patient's age to complete this topic RSV Immunization Patients Under 20 months Aged Out No longer eligible based on patient's age to complete this topic Varicella Vaccines Aged Out No longer eligible based on patient's age to complete this topic Procedures Procedure Name Priority Date/Time Associated Diagnosis Comments ANNUAL BMP BLOOD TEST Routine 09/26/2023 LIPID PANEL Routine 09/11/2022 HEPATITIS C SCREENING Routine 12/07/2020 from Last 3 Months or Most Recently Relevant to Health Maintenance Results * Annual BMP Blood Test (09/26/2023) [facility] Annual BMP Blood Test abstracted [facility] Provider HEALTH MAINTENANCE Final Result * Lipid panel (09/11/2022) [facility] LDL/HDL Ratio 0 Comment:no interpretation Triglycerides 0 mg/dL Comment:no interpretation Cholesterol 0 mg/dL Comment:no interpretation HDL 0 mg/dL Comment:no interpretation LDL Cholesterol 0 mg/dL Comment:no interpretation Blood Venous blood specimen / Unknown [facility] Provider LAB BLOOD ORDERABLES Kimi l Result * Hepatitis C Screening (12/07/2020) [facility] Hepatitis C Screening abstracted [facility] Provider HEALTH MAINTENANCE Final Result from Last 3 Months or Most Recently Relevant to Health Maintenance Insurance Care Teams Jewelry Making Instructor Relationship Specialty Start Date End Date Hair Becerra MD [address] [place] [phone] PCP - General Change Lead 09/20/21
--- OUTSIDE RECORDS SUMMARY | 2024-12-06 09:26 | XMS_ITS | Clinical Summary ---
Author Organization [facility] Address [address] [place] [address] Care Team Providers Care Airport Screener Name Role Phone Hair Becerra MD Primary Care Provider [phone] Allergies Active Allergy Reactions Criticality Noted Date Comments Doxycycline Photosensitivity Medium 04/01/2017 Nsaids Medium 04/15/2017 Liver problems Penicillins Rash Low 04/01/2017 Pregabalin Swelling Medium 03/19/2017 Omeprazole 06/30/2022 Medications Medication Sig Dispensed Refills Start Date End Date Status amLODIPine (NORVASC) tablet 10 mg Take 1 tablet (10 mg total) by mouth daily. 0 09/29/2021 Active atorvastatin (LIPITOR) tablet 20 mg Take 1 tablet (20 mg total) by mouth daily. 0 09/27/2021 Active Cetirizine HCl 10 MG CAPS Take 1 tablet by mouth daily. 0 Active Cholecalciferol 25 MCG (1000 UT) capsule 1,000 Units. 0 Active hydroCHLOROthiazide (HYDRODIURIL) tablet 25 mg Take 1 tablet (25 mg total) by mouth daily. 0 09/16/2021 Active levothyroxine (SYNTHROID) tablet 25 mcg TAKE 1 TABLET DAILY FOR 6 DAYS PER WEEK, AND TAKE 1 & 1/2 TABLETS DAILY ONE DAY PER WEEK 0 08/26/2021 Active magnesium oxide (MAG-OX) 400 MG tablet Take 1 tablet (400 mg total) by mouth daily. 0 08/23/2021 Active metoprolol succinate (TOPROL-XL) 24 hr tablet 25 mg Take 1 tablet (25 mg total) by mouth daily. 0 10/28/2021 Active PARoxetine (PAXIL) 30 MG tablet Take 1 tablet (30 mg total) by mouth daily. 0 10/29/2021 Active Riboflavin (Vitamin B-2) 100 MG TABS Take 2 tablets by mouth 2 (two) times a day. 0 09/25/2021 Active Ubrelvy 100 MG TABS PLEASE SEE ATTACHED FOR DETAILED DIRECTIONS 0 10/28/2021 Active baclofen (LIORESAL) 10 MG tablet Take 1/2 tab po TID prn. 0 12/16/2021 Active Vibegron (Gemtesa) 75 MG TABS Take by mouth. 0 Active famotidine (PEPCID) 40 MG tablet Take 1 tablet (40 mg total) by mouth. 0 04/14/2022 Active apixaban (Eliquis) 5 MG TABS tablet Take 1 tablet (5 mg total) by mouth. 0 09/25/2023 Active albuterol 108 (90 Base) MCG/ACT inhaler Inhale 2 puffs into the lungs every 6 (six) hours as needed. 0 08/25/2023 Active carisoprodol (Soma) 250 MG tablet Take 1 tablet (250 mg total) by mouth. 0 11/23/2023 Active Dronedarone HCl (Multaq) 400 MG tablet Take 1 tablet (400 mg total) by mouth. 0 09/25/2023 Active Riboflavin (Vitamin B-2) 100 MG TABS Take 100 mg by mouth. 0 Active Active Problems Problem Noted Date Diagnosed Date Menopausal symptom 07/08/2023 07/08/2023 Normal gynecologic examination 07/08/2023 0 07/08/2023 Osteoarthritis 07/08/2023 07/08/2023 Primary osteoarthritis of both knees 10/30/2022 07/08/2023 Overview: Last Assessment & Plan: Minimally symptomatic; duloxetine relatively contraindicated given that she is currently taking paroxetine Intractable migraine without aura and without status migrainosus 09/17/2022 07/08/2023 Overview: Last Assessment & Plan: Followed by Dr. Sahu, on Qulipta/Ubrelvy, much better control, 3 per month now. Pure hypercholesterolemia 03/18/20224 Overview: Last Assessment & Plan: LDL goal for this patient should be less than 70 mg/dL. She does have mild plaquing that is asymptomatic and not on high-grade in the lower extremity arteries. I have reordered a lipid panel and A1c and will follow-up with her in 6 months LDL goal should be less than 70 Varicose veins of both lower extremities with pa in 09/10/2021 07/08/2023 Overview: Last Assessment & Plan: Present but asymptomatic Other insomnia 02/21/2021 07/08/2023 Osteoarthritis of spine with radiculopathy, cerv ical region 09/09/2020 07/08/2023 Overview: Last Assessment & Plan: Dx'd as part of ongoing w/u for ? MS ([facility]); repeat imaging planned 05/2023 per patient report Last Assessment & Plan: Reviewed MRI indicating C5-6 and C6-7 stenosis from disc bulging. No long track signs. Contributing to this scapulothoracic and pericervical pain. Doing well but still symptomatic. Continue home exercise program and physical therapy and suggested massage therapy twice monthly and to ask physical therapy for recommendation regarding this. Acquired hypothyroidism 05/19/2019 07/08/19 Overview: Last Assessment & Plan: TSH is due, previously stable. Continue levothyroxine. Sleep apnea 05/13/2018 07/08/2023 Overview: Uses dental device. Last Assessment & Plan: Hx of GILDA, was using detal appliance for a while, now on CPAP and says she is told she is well controlled. Neuropathy 09/07/2017 07/08/2023 Overview: Last Assessment & Plan: Abnormal MRI finding, LP results pending regarding possible MS. Will review with Dr. Peterson History of Lyme disease 04/15/2017 07/08/19 Overview: Last Assessment & Plan: No evidence for active Lyme disease or other [facility] infections. Essential hypertension 03/19/2017 Overview: Last Assessment & Plan: Well-controlled to the guidelines Fibromyalgia 03/19/2017 07/08/2023 Overview: Duloxetine not effective; numbness / tingling very significantly improved with longstanding paroxetine Gabapentin not effective Methocarbamol not effective Angioedema with pregabalin Did not tolerate tizanidine Last Assessment & Plan: No specific objective evidence concerning for underlying or co-morbid inflammatory arthritis or connective tissue disease; some benefit with current use of baclofen (typically twice daily) as well as longstanding paroxetine. She is compliant with CPAP. 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 D/w patient that I do not rx carisoprodol or low dose naltrexone; I will coordinate directly with Dr. Kern re: f/u. Written information on fibromyalgia provided for patient review. Spinal stenosis of lumbosacral region 03/19/2017 07/08/2023 Overview: Last Assessment & Plan: She has a problem with this but it is not active at this time Family History Medical History Relation Name Comments Atrial fibrillation Brother Heart attack Father Heart disease Father Hypertension Mother Stroke Mother No Sig Med Hx Sister Multiple sclerosis Neg Hx Relation Name Status Comments Brother Alive Father Mother Sister Alive Social History Tobacco Use Types Packs/Day Years Used Date Smoking Tobacco: Former Cigarettes Q uit: 11/15/1992 Smokeless Tobacco: Never Tobacco Cessation:Counseling Given: Not Answered Alcohol Use Standard Drinks/Week Comments Yes 0 (1 standard drink = 0.6 oz pur e alcohol) Social Sex and Gender Information Value Date Recorded Sex Assigned at Female 09/20/2021 1:54 PM EDT Gender Identity Not on file Sexual Orientation Not on file Job Start Date Occupation Industry Not on file Not on file Not on file Last Filed Vital Signs Vital Sign Reading Time Taken Comments Blood Pressure 136/79 12/10/2023 9:24 AM EDT Pulse 47 12/10/2023 9:24 AM EDT Temperature 36.7 C (98.1 F) 06/11/2023 10:05 AM EST Respiratory Rate 16 12/31/2022 8:38 AM EDT Oxygen Saturation 97% 12/10/2023 9:24 AM EDT Inhaled Oxygen Concentration - - Weight 76.6 kg (168 lb 12.8 oz) 12/10/2023 9:24 AM EDT Height 167.6 cm (5' 6 ) 06/11/2023 10:0 5 AM EST Body Mass Index 27.25 06/11/2023 10:05 AM EST Plan of Treatment Health Maintenance Due Date Last Done Comments Depression Screening 1973 BMI Counseling 08/28/1979 Preventative Health Evaluation 08/28/1979 Cervical Cancer Screening (Pap Smear) 1982 Colon Cancer Screening (Colonoscopy) 2006 Breast Cancer Screening (Mammogram) 08/28/2011 COVID-19 Vaccine ( season) 2024 08/10/2020, 07/20/2020, 07/21/2019 Influenza Vaccine (#1) 2025 , 02/24/2022, 02/25/2021, Additional history exists DTap / Tdap / Td (2 - Td or Tdap) 05/19/2029 05/19/2019, 05/04/2008 RSV Adult > 60+ Yrs or (1 - 1-dose 75+ series) 2036 Pneumococcal Vaccine Aged Out 08/28/2014 No long er eligible based on patient's age to complete this topic Hepatitis C Screening Completed 12/07/2020 Shingrix-Zoster Vaccine Completed 06/17/2023, 04/01 Hepatitis B Vaccines Aged Out No long er eligible based on patient's age to complete this topic RSV Ped < 20 months Aged Out No longe r eligible based on patient's age to complete this topic Care Teams Airport Screener Relationship Specialty Start Date End Date Hair Becerra MD [address] [place] [address] PCP - General Store Keeper 09/20/21
== END 2024-12-06 10:12 | disposition home or self-care (01) ==
LOC: HO.HSMS 09:06
PROVIDERS: PCP Pediatrics; Visit Provider Nurse Practitioner Family
DX: G43.009 Migraine without aura, not intractable, without status migrainosus (principal); G93.2 Benign intracranial hypertension; R90.82 White matter disease, unspecified
CPT/HCPCS: 99214

== ENCOUNTER → 2024-12-13 23:59 | Outpatient (BNV) | payer OTHER, SELFPAY | PROVIDERS: PCP Pediatrics; Visit Provider Psychiatry & Neurology Neurology | DX: G56.23 Lesion of ulnar nerve, bilateral upper limbs (principal) | CPT/HCPCS: 95886; 95912 ==